=== PATIENT | male | born 1945 | race Caucasian/White ===

== ENCOUNTER 2019-03-22 07:31 | Outpatient (CLI) | payer MEDICARE, OTHER | END 2019-03-22 23:59 | disposition home or self-care (01) | LOC: ROC 07:31 | PROVIDERS: ATTEND Radiology Radiation Oncology | DX: Z08 Encounter for follow-up examination after completed treatment for malignant neoplasm (principal); Z85.818 Personal history of malignant neoplasm of other sites of lip, oral cavity, and pharynx | CPT/HCPCS: G0463 ==

== ENCOUNTER → 2019-04-25 | Outpatient (CLI) | payer MEDICARE, OTHER ==
[~2019-04-25] MED LIST: APIX5TAB PO; ASPI81TA45 PO; ATEN50TA41 PO; CALC1CAP8 PO; FURO40TA6 PO; HYDR-3307 PO; LANS30TA6 PO; LEVO150T5 PO; LIDOCAINE-MPF 1%, 5ML ONE; MULT1TAB9 PO; POTA20TA6 PO; WARF10TA PO-COUM
== END | disposition home or self-care (01) ==
LOC: RAD 13:16
PROVIDERS: ATTEND Thoracic Surgery (Cardiothoracic Vascular Surgery)
DX: J90 Pleural effusion, not elsewhere classified (principal)
CPT/HCPCS: 32555

== ENCOUNTER 2020-04-03 07:31 | Outpatient (CLI) | payer MEDICARE, OTHER ==
[~2020-04-03 07:31] MED LIST changes: +HYDR-3246 PO; -HYDR-3307 PO; -LIDOCAINE-MPF 1%, 5ML ONE
== END 2020-04-03 23:59 | disposition home or self-care (01) ==
LOC: ROC 07:31
PROVIDERS: ATTEND Radiology Radiation Oncology
DX: Z08 Encounter for follow-up examination after completed treatment for malignant neoplasm (principal); C09.9 Malignant neoplasm of tonsil, unspecified
CPT/HCPCS: G0463

== ENCOUNTER → 2021-03-26 | Outpatient (CLI) | payer MEDICARE, OTHER ==
[~2021-03-26] MED LIST changes: -HYDR-3246 PO; +HYDR-3248 PO
== END | disposition home or self-care (01) ==
LOC: ROC 07:09
PROVIDERS: ATTEND Radiology Radiation Oncology
DX: Z08 Encounter for follow-up examination after completed treatment for malignant neoplasm (principal); C09.9 Malignant neoplasm of tonsil, unspecified
CPT/HCPCS: G0463